=== PATIENT | male | born 1975 | race Caucasian/White ===

== ENCOUNTER 2024-09-08 11:43 | Emergency (ER) | payer OTHER, SELFPAY ==
[2024-09-08 11:51] VITALS: BP 136/94; PULSE 102; RESP 16; TEMP 36.1; O2SAT 97; BMI 33.0
--- NOTE | 2024-09-08 11:55 | DI.RAD.S_ITS ---
PROCEDURE: XR FOREARM RT 2V INDICATIONS: bite/deformity? TECHNIQUE: 2 views of the forearm were acquired. COMPARISON: None. FINDINGS: Bones: Distal radial old fracture deformity. Old ununited distal ulnar styloid fracture. Soft tissues: No suspicious soft tissue calcifications or masses. IMPRESSION: No acute bony abnormality. Old distal healed fracture deformities. Approved by: Luis Mercado M.D. on 09/08/2024 at 11:23
[2024-09-08] MEDS: IBUPROFEN 400 MG TABLET 800 MG PO (12:14)
--- NOTE | 2024-09-08 12:27 | ED_ITS ---
HPI - Wound/Laceration General Chief Complaint: Wound/Laceration Stated Complaint: Right arm Dog bite Time Seen by Provider: 09/08/24 12:27 Source: patient Mode of arrival: Ambulatory History of Present Illness HPI narrative: 49-year-old male presents with concern for a dog bite to his right arm sustained approximately an hour prior to arrival. Patient endorses a distant history of previous arm fracture on the right for which he did not seek medical care (in his forearm). 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 The front door was open but there was a screen door there and he held the screen door against the dog to keep it from opening so that it would not get out to him. He states that the dog's stamp machine servicer also came to the door and was attempting to call her dog away but it was not answering. He states that as he was holding the screen door closed he did not realize that there was a section of the screen door that was completely open and the dog reached through with its mouth and bit his arm wrapping his mouth around his arm. He states he pulled his arm away and the stamp machine servicer of the dog was able to get the dog under control. He has a contact information but at this time is unsure about vaccination status. He himself states that he does not have a PCP and has not had a tetanus update in over a decade. He states that his arm is very painful since the bite and has been swelling some; denies numbness or tingling of the arm distal to the bite does state that he has some mild nausea. He denies any other complaints or concerns. Related Data Previous Rx's Medication Instructions Recorded amoxicillin 875 mg-potassium 1 tab PO Q12H puncture wounds dog 09/08/24 clavulanate 125 mg tablet bite 10 days #20 tabs hydrocodone 5 mg-acetaminophen 325 1 tab PO TID PRN pain 3 days #14 09/08/24 mg tablet tabs Allergies Allergy/AdvReac Type Severity Reaction Status Date / Time No Known Drug Allergies Allergy Verified 09/08/24 11:50 Review of Systems Review of Systems Narrative: See HPI Patient History Social History Smoking Status: Current every day smoker Smoking Status: Current every day smoker Exam Narrative Exam Narrative: GENERAL: 49 year old patient appears stated age. Well-developed patient, in moderate distress; patient is uncomfortable appearing. In pain. HEAD: Atraumatic. Normocephalic. EYES: Pupils equal round and reactive. Extraocular motions intact. No scleral icterus. No injection or drainage. ENT: Nose without bleeding, purulent drainage. Airway patent. NECK: Trachea midline. Non tender CARDIOVASCULAR: Regular rate and rhythm without murmurs, gallops, or rubs. RESPIRATORY: Clear to auscultation. Breath sounds equal bilaterally. No wheezes, rales, or rhonchi. EXTREMITIES: There is mild chronic appearing deformity of the patient's distal forearm/wrist from previous injury. There is a puncture laceration approximately 6 mm in length in the patient's mid posterior forearm. There is a 2nd puncture/laceration approximately 12 mm in length in the patient's anterior forearm opposite this. Bleeding is controlled. These are full-thickness, fatty tissue is visible. There is tenderness around the site. No bleeding with pressure around the wound. Range of motion is intact and strength is intact in all digits and the patient's wrist and elbow however he has significant increased pain with flexion and extension resisted when using his 4th and 5th digit. No other edema or joint tenderness. NEURO: AOx3. SKIN: No rash or erythema of visible areas Initial Vital Signs Initial Vital Signs: Vital Signs Temperature 97 F L 09/08/24 11:51 Pulse Rate 102 H 09/08/24 11:51 Respiratory Rate 16 09/08/24 11:51 Blood Pressure 136/94 H 09/08/24 11:51 Pulse Oximetry 97 09/08/24 11:51 Oxygen Delivery Method Room Air 09/08/24 11:51 Course Orders Ordered: ED Orders 09/08/24 11:55 XR forearm RT 2V Stat Discontinued Medications Acetaminophen (Acetaminophen 325 Mg Tablet) 650 mg PO NOW ONE Stop: 09/08/24 12:30 Last Admin: 09/08/24 12:38 Dose: 650 mg Documented By: VARSHA Ibuprofen (Ibuprofen 400 Mg Tablet) 800 mg PO NOW ONE Stop: 09/08/24 11:59 Last Admin: 09/08/24 12:14 Dose: 800 mg Documented By: MILAGRO Ondansetron HCl (Ondansetron 4 Mg Odt) 4 mg SL NOW ONE Stop: 09/08/24 12:30 Last Admin: 09/08/24 12:38 Dose: 4 mg Documented By: TC Tetanus/Diphtheria Toxoids (Tetanus Diphtheria Toxoids 0.5 Ml Vial) 0.5 ml IM .ONCE ONE Stop: 09/08/24 12:47 Last Admin: 09/08/24 12:59 Dose: 0.5 ml Documented By: TC Vital Signs Vital signs: Vital Signs - 8 hr 09/08/24 11:51 09/08/24 13:27 Temperature 97 F L 98.6 F Pulse Rate 102 H 99 H Respiratory Rate 16 16 Blood Pressure 136/94 H 130/90 Pulse Oximetry 97 99 Oxygen Delivery Method Room Air Room Air MDM - Wound/Laceration Differential Diagnosis Differential diagnosis: Likely other (Dog bite, puncture/laceration) Imaging Data Extremity x-ray #1: My Impression: Agree with Radiology interpretation Radiologist's Impression: [address] [address] XRay Report Signed Patient: Santo Pop MR#: [id number] : 1975 Acct:[id number] Age/Sex: 49 / M Date of Service: 09/08/24 Loc: ED Accession Number: [id number] Procedure: XR forearm RT 2V Ordering Provider: Fredis Cullen D.O. PROCEDURE: XR FOREARM RT 2V INDICATIONS: bite/deformity? TECHNIQUE: 2 views of the forearm were acquired. COMPARISON: None. FINDINGS: Bones: Distal radial old fracture deformity. Old ununited distal ulnar styloid fracture. Soft tissues: No suspicious soft tissue calcifications or masses. IMPRESSION: No acute bony abnormality. Old distal healed fracture deformities. Approved by: Luis Mercado M.D. 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 [facility] paperwork is completed today with the assistance of RN by the patient. He does have contact information for the stamp machine servicer of the dog and will determine the dog's vaccination status. Today his tetanus is updated. Exam of the puncture laceration wounds. Bleeding is controlled without effort/simple wrap. Patient was washed out and Betadine applied in triage. We discussed additional wound care today. Patient is specifically declined stitches or additional washout but states he will make sure he showers with soap and water at home and continue to cleanse the area as it heals. Did advise him that a single suture at each site might be helpful to bring the wound together and with healing but still allow it to drain as needed and could likely be performed without increasing risk of infection however he declines these. This is reasonable given that the wounds are not continuing to bleed. Prescription for Augmentin for 10 day course. As he does have swelling and pain and tenderness with active motion of the 5th and 6th digits he is strongly advised to see Orthopedics for further evaluation as I can not completely rule out damage to tendon sheath or soft tissue injury. Information for orthopedic provider in [place] near where he lives is provided today. Prescription also provided for hydrocodone. He is placed in a sling and arm is rebandaged. It was recommended he use ice compression and elevation in addition to Tylenol ibuprofen and antibiotics and hydrocodone as needed. We discussed signs of infection and return precautions. Return precautions provided, follow-up plan discussed, all questions answered.. Discharge Plan Departure Patient Disposition: Home Clinical Impression: Dog bite of right forearm Qualifiers: Encounter type: initial encounter Qualified Code(s): S51.851A - Open bite of right forearm, initial encounter Instructions: DI for Dog Bite Activity Restrictions/Additional Instructions: *You have been diagnosed with dog bite to your right arm *What to do: *Please continue to take your regular medications as directed. [ 1] New medication prescriptions sent to your pharmacy: [ augmentin] [ ] New medication written as a paper prescription [ ] No new medications given *Please follow up with your primary care provider in 2-3 days, call for an appointment. Let them know you were seen in the Emergency Department and that we ask that you be seen in follow up. We will electronically transmit a record of today's note if your PCP is in our system. Unfortunately you were bitten by a dog today. You do have puncture laceration on both sides of your forearm, this was cleaned out although it is fine to shower and use soap and water over this area, I would encourage this. You may have some mild additional bleeding but this should stop easily with direct pressure based on your exam today. Please take the antibiotics as prescribed for the entire duration. This is extremely important. As there is a high risk of infection with animal bites. If you see concerning signs of infection such as increased swelling increased pain redness drainage especially thick yellow green or white drainage from the wound sites or have other symptoms of concern it is very important to get re-evaluated. Because of the probable depth of the wounds and your significant pain with movement of her fingers I do think it has also a very good idea to be evaluated further by orthopedics. I have included orthopedic doctor information below. You can see any of the providers at [facility]. Dr. Barone is also a hand and arm specialist and works at this location in [place]. You can call the office below to work on getting scheduled with him or the provider listed below. Your x-rays did show old fracture with malunion. But no new findings. It is important to follow up and ensure that the dog that bit you is up-to-date on its vaccines. The police/health department can work with you on this as well. I strongly recommend keeping her arm elevated you may want to ice it on and off for the next 24 hours or so to help with pain as well. I have p rescribed in addition to antibiotics a stronger pain medication. Please do not take this with driving. I strongly recommend you utilize Tylenol and ibuprofen but if this is not helping enough you can take the stronger pain medication. I hope this heals up well and you feel better soon. *If you do not have a primary care provider please contact the [facility] Resource line at [phone]. They will ask some questions about your medical history and help get you set up with a doctor in the community. *Return to Emergency Department if you should have any new, worsening or concerning symptoms, such as [fever greater than 101 F, shaking chills, worsening pain, persistent vomiting or other bothersome symptoms] Prescriptions: New amoxicillin-pot clavulanate 875-125 mg tablet 1 tab PO Q12H 10 Days Qty: 20 0RF hydrocodone-acetaminophen 5-325 mg tablet 1 tab PO TID PRN (Reason: pain) 3 Days Qty: 14 0RF Referrals: Michael Hoffmann MD [Non-Staff] - (Dog bite R/Arm; further eval/care; Fxn intact) Stand Alone Forms: Patient Portal/API/Survey
[2024-09-08] MEDS: ONDANSETRON 4 MG ODT SL (12:38)
[2024-09-08] MEDS: ACETAMINOPHEN 325 MG TABLET 650 MG PO (12:38)
[2024-09-08] MEDS: TETANUS DIPHTHERIA TOXOIDS 0.5 ML VIAL IM (12:59)
[2024-09-08 13:27] VITALS: BP 130/90; PULSE 99; RESP 16; TEMP 37; O2SAT 99
== END 2024-09-08 13:32 | disposition home or self-care (01) ==
PROVIDERS: Emergency Provider Student in an Organized Health Care Education/Training Program
DX: S51.851A Open bite of right forearm, initial encounter (principal); W54.0XXA Bitten by dog, initial encounter; Z23 Encounter for immunization
CPT/HCPCS: 73090; 90471; 90714; 99284